=== PATIENT | female | born 1965 | race Caucasian/White ===

== ENCOUNTER 2019-01-06 16:55 | Emergency (ER) | payer OTHER ==
[~2019-01-06] VITALS: Ht 160 cm; Wt 95.5 kg
--- NOTE | 2019-01-06 18:25 | PHYS DOC ---
Past Medical History Past Surgical History: Appendectomy, Hysterectomy Adult General Chief Complaint Chief Complaint: ABDOMINAL PAIN HPI HPI Patient is a 53 year old L presented to ER today for evaluation of lower abdominal pain started last night. Patient had a colonoscopy done yesterday, there were two polyps removal. Patient started having abdominal pain when she came home. She denies any rectal bleeding. Patient says she had the colonoscopy because she had diarrhea for about 6-7 days. She denies any fever. Patient denies any nausea vomiting. Review of Systems Review of Systems Constitutional: Denies fever or chills [] Eyes: Denies change in visual acuity, redness, or eye pain [] HENT: Denies nasal congestion or sore throat [] Respiratory: Denies cough or shortness of breath [] Cardiovascular: No additional information not addressed in HPI [] GI: Positive for abdominal pain, No nausea, vomiting, bloody stools or diarrhea [] : Denies dysuria or hematuria [] Musculoskeletal: Denies back pain or joint pain [] Integument: Denies rash or skin lesions [] Neurologic: Denies headache, focal weakness or sensory changes [] Endocrine: Denies polyuria or polydipsia [] All other systems were reviewed and found to be within normal limits, except as documented in this note. Current Medications Current Medications Current Medications Medications (Trade) Dose Ordered Sig/Claire Start Time Stop Time Status Last Admin Dose Admin Info (CONTRAST GIVEN -- Rx MONITORING) 1 each PRN DAILY PRN 01/06/19 19:00 01/08/19 18:59 Iohexol (Omnipaque 240 Mg/ml) 30 ml 1X ONCE 01/06/19 19:00 01/06/19 19:01 DC 01/06/19 19:00 30 ML Iohexol (Omnipaque 300 Mg/ml) 75 ml 1X ONCE 01/06/19 19:00 01/06/19 19:01 DC 01/06/19 20:07 75 ML Morphine Sulfate (Morphine Sulfate) 4 mg 1X ONCE 01/06/19 18:30 01/06/19 18:33 DC 01/06/19 18:45 4 MG Ondansetron HCl (Zofran) 8 mg 1X ONCE 01/06/19 18:30 01/06/19 18:33 DC 01/06/19 18:44 8 MG Sodium Chloride 1,000 ml @ 1,000 mls/hr 1X ONCE 01/06/19 18:30 01/06/19 19:29 DC 01/06/19 18:44 1,000 MLS/HR Allergies Allergies Allergies Coded Allergies Type Severity Reaction Last Updated Verified codeine Allergy Mild Nausea 01/06/19 Yes Physical Exam Physical Exam Constitutional: Well developed, well nourished, no acute distress, non-toxic appearance. [] HENT: Normocephalic, atraumatic, bilateral external ears normal, oropharynx moist, no oral exudates, nose normal. [] Eyes: PERRLA, EOMI, conjunctiva normal, no discharge. [] Neck: Normal range of motion, no tenderness, supple, no stridor. [] Cardiovascular:Heart rate regular rhythm, no murmur [] Lungs & Thorax: Bilateral breath sounds clear to auscultation [] Abdomen: Bowel sounds normal, soft, There is tenderness to palpation in lower abdominal area, no rebound, no guarding, no masses, no pulsatile masses. [] Skin: Warm, dry, no erythema, no rash. [] Back: No tenderness, no CVA tenderness. [] Extremities: No tenderness, no cyanosis, no clubbing, ROM intact, no edema. [] Neurologic: Alert and oriented X 3, normal motor function, normal sensory function, no focal deficits noted. [] Psychologic: Affect normal, judgement normal, mood normal. [] Current Patient Data Vital Signs Vital Signs Date Time Temp Pulse Resp B/P (MAP) Pulse Ox O2 Delivery O2 Flow Rate FiO2 01/06/19 18:45 18 99 Room Air 01/06/19 18:00 97.9 53 187/109 (135) 97.9 Lab Values Laboratory Tests Test 01/06/19 18:18 01/06/19 18:20 Urine Collection Type Void Urine Color Yellow Urine Clarity Clear Urine pH 6.0 Urine Specific [place] 1.010 Urine Protein Negative mg/dL (NEG-TRACE) Urine Glucose (UA) Negative mg/dL (NEG) Urine Ketones (Stick) Negative mg/dL (NEG) Urine Blood Negative (NEG) Urine Nitrite Negative (NEG) Urine Bilirubin Negative (NEG) Urine Urobilinogen Dipstick 0.2 mg/dL (0.2 mg/dL) Urine Leukocyte Esterase Small (NEG) Urine RBC 0 /HPF (0-2) Urine WBC Occ /HPF (0-4) Urine Squamous Epithelial Cells Occ /LPF Urine Bacteria 0 /HPF (0-FEW) White Blood Count 8.3 x10^3/uL (4.0-11.0) Red Blood Count 4.44 x10^6/uL (3.50-5.40) Hemoglobin 13.2 g/dL (12.0-15.5) Hematocrit 40.3 % (36.0-47.0) Mean Corpuscular Volume 91 fL (79-100) Mean Corpuscular Hemoglobin 30 pg (25-35) Mean Corpuscular Hemoglobin Concent 33 g/dL (31-37) Red Cell Distribution Width 13.8 % (11.5-14.5) Platelet Count 254 x10^3/uL (140-400) Neutrophils (%) (Auto) 50 % (31-73) Lymphocytes (%) (Auto) 38 % (24-48) Monocytes (%) (Auto) 6 % (0-9) Eosinophils (%) (Auto) 4 % (0-3) H Basophils (%) (Auto) 1 % (0-3) Neutrophils # (Auto) 4.2 x10^3uL (1.8-7.7) Lymphocytes # (Auto) 3.2 x10^3/uL (1.0-4.8) Monocytes # (Auto) 0.5 x10^3/uL (0.0-1.1) Eosinophils # (Auto) 0.4 x10^3/uL (0.0-0.7) Basophils # (Auto) 0.1 x10^3/uL (0.0-0.2) Prothrombin Time 12.5 SEC (11.7-14.0) Prothrombin Time INR 1.0 (0.8-1.1) PTT 29 SEC (24-38) Sodium Level 141 mmol/L (136-145) Potassium Level 3.7 mmol/L (3.5-5.1) Chloride Level 103 mmol/L (98-107) Carbon Dioxide Level 25 mmol/L (21-32) Anion Gap 13 (6-14) Blood Urea Nitrogen 14 mg/dL (7-20) Creatinine 0.9 mg/dL (0.6-1.0) Estimated GFR (Cockcroft-Gault) 65.5 BUN/Creatinine Ratio 16 (6-20) Glucose Level 88 mg/dL (70-99) Calcium Level 9.7 mg/dL (8.5-10.1) Total Bilirubin 0.3 mg/dL (0.2-1.0) Aspartate Amino Transferase (AST) 14 U/L (15-37) L Alanine Aminotransferase (ALT) 21 U/L (14-59) Alkaline Phosphatase 67 U/L (46-116) Total Protein 7.7 g/dL (6.4-8.2) Albumin 3.9 g/dL (3.4-5.0) Albumin/Globulin Ratio 1.0 (1.0-1.7) Lipase 92 U/L (73-393) Laboratory Tests 01/06/19 18:20 Laboratory Tests 01/06/19 18:20 EKG EKG [] Radiology/Procedures Radiology/Procedures [][facility] [address] [place] [address] IMAGING REPORT Signed PATIENT: HOLLIE GHOTRA ACCOUNT: [id number] : 1965 LOCATION: ER AGE: 53 SEX: F EXAM STATUS: REG ER ORD. PHYSICIAN: SARAN SHIPLEY DO REASON: abdominal pain, colonoscopy yesterday, OMNI 240, 30ml & OMNI 300, 75ml PROCEDURE: CT ABD PELV W/ORAL&IV CONTRAST CT abdomen and pelvis with contrast. HISTORY: Abdominal pain, colonoscopy yesterday CT scan of the abdomen and pelvis was done using 75 mL Omnipaque 300 contrast. Lung bases are clear except for mild linear atelectasis. There is no pleural effusion. A liver lesion is not identified. Spleen and adrenal glands are unremarkable. There is an accessory spleen. Pancreas is normal in appearance. There is no mass or hydronephrosis in the kidneys. Bladder is distended. There is mild diverticulosis of the colon without an diverticulitis. There is no free air or ascites. The patient had a previous hysterectomy. IMPRESSION: 1. Distended bladder. 2. No bowel obstruction. 3. No ascites or free air. 4. No other acute finding. PQRS Compliance Statement: One or more of the following individualized dose reduction techniques were utilized for this examination: 1. Automated exposure control 2. Adjustment of the mA and/or kV according to patient size 3. Use of iterative reconstruction technique Electronically signed by: Douglas Banda MD (01/06/2019 8:33 PM) [facility] DICTATED and SIGNED BY: DOUGLAS BANDA MD DATE: 01/06/192032 Course & Med Decision Making Course & Med Decision Making Pertinent Labs and Imaging studies reviewed. (See chart for details) This physician discussed labs and CT finding with Patient's GI doctor, ok to discharged home with pain medication. Dragon Disclaimer Dragon Disclaimer This electronic medical record was generated, in whole or in part, using a voice recognition dictation system. Departure Departure Impression: Primary Impression: Abdominal pain Disposition: HOME, SELF-CARE Condition: IMPROVED Patient Instructions: Abdominal Pain Additional Instructions: call your GI doctor for follow up next week. Scripts Tramadol Hcl (TRAMADOL HCL) 50 Mg Tablet 50 MG PO Q6HRS PRN for PAIN, #20 TAB Prov: SARAN SHIPLEY DO 01/06/19 SARAN SHIPLEY DO January 06, 2019 18:25
[2019-01-06] MEDS ORDERED: IV NORMAL SALINE 1000ML BAG 1,000 ML IV ONE (18:30)
[2019-01-06] MEDS ORDERED: MORPHINE SULFATE 4 MG/ML VIAL. IV ONE (18:30)
[2019-01-06] MEDS ORDERED: ONDANSETRON PF 4 MG/2 ML VIAL. IV ONE (18:30)
[2019-01-06 18:34] LABS: BASO # 0.1 x10^3/uL (0.0-0.2); BASO % 1 % (0-3); EOS # 0.4 x10^3/uL (0.0-0.7); EOS % 4 % (0-3); HEMATOCRIT 40.3 % (36.0-47.0); HEMOGLOBIN 13.2 g/dL (12.0-15.5); LYMPH # 3.2 x10^3/uL (1.0-4.8); LYMPH % 38 % (24-48); MEAN CORPUSCULAR HEMOGLOBIN 30 pg (25-35); MEAN CORPUSCULAR HGB CONC 33 g/dL (31-37); MEAN CORPUSCULAR VOLUME 91 fL (79-100); MONO # 0.5 x10^3/uL (0.0-1.1); MONO % 6 % (0-9); NEUT # 4.2 x10^3uL (1.8-7.7); NEUT % 50 % (31-73); PLATELET COUNT 254 x10^3/uL (140-400); RED BLOOD COUNT 4.44 x10^6/uL (3.50-5.40); RED CELL DISTRIBUTION WIDTH 13.8 % (11.5-14.5); WHITE BLOOD COUNT 8.3 x10^3/uL (4.0-11.0)
[2019-01-06 18:41] LABS: BILIRUBIN,URINE NEGATIVE (NEG); CLARITY,URINE CLEAR; COLOR,URINE YELLOW; NITRITE,URINE NEGATIVE (NEG); PROTEIN,URINE NEGATIVE (NEG-TRACE); UROBILINOGEN,URINE 0.2 mg/dL (0.2 mg/dL)
[2019-01-06 18:45] LABS: PROTHROMBIN TIME PATIENT 12.5 SEC (11.7-14.0)
[2019-01-06 18:46] LABS: CALCIUM 9.7 mg/dL (8.5-10.1); CREATININE 0.9 mg/dL (0.6-1.0); GFR 65.5; POTASSIUM 3.7 mmol/L (3.5-5.1)
[2019-01-06 18:49] LABS: ALBUMIN 3.9 g/dL (3.4-5.0); TOTAL BILIRUBIN 0.3 mg/dL (0.2-1.0); TOTAL PROTEIN 7.7 g/dL (6.4-8.2)
[2019-01-06 18:50] LABS: BACTERIA,URINE 0 /HPF (0-FEW); RBC,URINE 0 /HPF (0-2); SQUAMOUS EPITHELIAL CELL,UR OCC /LPF; WBC,URINE OCC /HPF (0-4)
[2019-01-06] MEDS ORDERED: IOHEXOL 300 MG/ML 100ML VIAL. IV ONE (19:00)
[2019-01-06] MEDS ORDERED: CONTRAST GIVEN. MC PRN (19:00)
[2019-01-06] MEDS ORDERED: IOHEXOL 240 MG/ML 50ML VIAL. PO ONE (19:00)
--- NOTE | 2019-01-06 20:36 | RAD ---
CT abdomen and pelvis with contrast. HISTORY: Abdominal pain, colonoscopy yesterday CT scan of the abdomen and pelvis was done using 75 mL Omnipaque 300 contrast. Lung bases are clear except for mild linear atelectasis. There is no pleural effusion. A liver lesion is not identified. Spleen and adrenal glands are unremarkable. There is an accessory spleen. Pancreas is normal in appearance. There is no mass or hydronephrosis in the kidneys. Bladder is distended. There is mild diverticulosis of the colon without an diverticulitis. There is no free air or ascites. The patient had a previous hysterectomy. IMPRESSION: 1. Distended bladder. 2. No bowel obstruction. 3. No ascites or free air. 4. No other acute finding. PQRS Compliance Statement: One or more of the following individualized dose reduction techniques were utilized for this examination: 1. Automated exposure control 2. Adjustment of the mA and/or kV according to patient size 3. Use of iterative reconstruction technique Electronically signed by: Douglas Ritchie MD (01/06/2019 8:33 PM) [facility]
[2019-01-06 20:38] VITALS: BP 179/74
[2019-01-06] MEDS ORDERED: TRAM50TA PO (20:45)
--- NOTE | 2019-01-12 12:25 | NUR ---
Late entry made to Medical Record. IV Stop time transcribed from eMAR to IV spreadsheet
== END 2019-01-06 21:00 | disposition home or self-care (01) ==
LOC: ER 16:55
DX: R10.30 Lower abdominal pain, unspecified (principal); N32.89 Other specified disorders of bladder; R19.7 Diarrhea, unspecified; K57.32 Diverticulitis of large intestine without perforation or abscess without bleeding; Z88.5 Allergy status to narcotic agent
CPT/HCPCS: 36415; 74177; 80053; 81001; 83690; 85025; 85610; 85730; 87086; 96361; 96374; 96375; 99285; J2270; J2405; J7030; Q9966; Q9967